=== PATIENT | female | born 1960 | race Caucasian/White ===

== ENCOUNTER 2016-09-16 12:52 | Day surgery (SDC) | payer OTHER ==
[2016-09-16 13:13] VITALS: O2SAT 95
[2016-09-16] MEDS ORDERED: LIDOCAINE HCL 1% MPF SOL ONE (13:37)
[2016-09-16] MEDS ORDERED: TRIAMCINOLONE ACETONIDE 40 MG/ML SUS ONE (13:37)
[2016-09-16 14:15] VITALS: BP 123/62; PULSE 95; RESP 20; TEMP 97.2
== END 2016-09-16 14:30 | disposition home or self-care (01) ==
LOC: SURG 12:52
PROVIDERS: ATTEND Nurse Anesthetist, Certified Registered
DX: M48.06 Spinal stenosis, lumbar region (principal)
CPT/HCPCS: 62323; 77003; J2001; J3300

== ENCOUNTER 2016-12-09 11:08 | Day surgery (SDC) | payer OTHER ==
[2016-12-09] MEDS ORDERED: DIAZEPAM 5 MG TAB ONE (11:51)
[2016-12-09] MEDS ORDERED: TRIAMCINOLONE ACETONIDE 40 MG/ML SUS ONE (13:11)
[2016-12-09] MEDS ORDERED: BUPIVACAINE HCL 0.5% MPF 10 ML SOL ONE (13:12)
[2016-12-09] MEDS ORDERED: LIDOCAINE HCL 1% MPF SOL ONE (13:12)
[2016-12-09 14:11] VITALS: BP 144/78; PULSE 57; RESP 18; TEMP 97.6; O2SAT 18
== END 2016-12-09 14:26 | disposition home or self-care (01) ==
LOC: SURG 11:08
PROVIDERS: ATTEND Nurse Anesthetist, Certified Registered
DX: M12.88 Other specific arthropathies, not elsewhere classified, other specified site (principal); M47.9 Spondylosis, unspecified
CPT/HCPCS: J2001; J3300

== ENCOUNTER 2017-02-25 07:09 | Day surgery (SDC) | payer OTHER ==
[2017-02-25] MEDS ORDERED: TRIAMCINOLONE ACETONIDE 40 MG/ML SUS ONE (07:50)
[2017-02-25] MEDS ORDERED: LIDOCAINE HCL 1% MPF SOL ONE (07:50)
[2017-02-25 08:27] VITALS: BP 134/72; PULSE 75; RESP 20; TEMP 96.9; O2SAT 96
== END 2017-02-25 08:45 | disposition home or self-care (01) ==
LOC: SURG 07:09
PROVIDERS: ATTEND Nurse Anesthetist, Certified Registered
DX: M12.88 Other specific arthropathies, not elsewhere classified, other specified site (principal)
CPT/HCPCS: 64493; 64494; 64495; 77003; J2001; J3300

== ENCOUNTER 2017-04-06 14:14 | Outpatient (CLI) | payer OTHER ==
[2017-02-25 08:27] VITALS: O2SAT 96
== END 2017-04-06 14:15 | disposition home or self-care (01) ==
LOC: CONVCARE 14:14
PROVIDERS: ATTEND Orthopaedic Surgery
DX: M25.561 Pain in right knee (principal); M77.12 Lateral epicondylitis, left elbow
CPT/HCPCS: 73070; 73562

== ENCOUNTER 2018-05-29 19:56 | Emergency (ER) | payer OTHER ==
[2018-05-29 20:15] VITALS: BP 117/78; PULSE 85; RESP 18; TEMP 97.3; O2SAT 98
== END 2018-05-29 20:37 | disposition home or self-care (01) ==
LOC: ED 19:56
DX: S93.402A Sprain of unspecified ligament of left ankle, initial encounter (principal)
CPT/HCPCS: 73620; 99282